=== PATIENT | female | born 1950 | race Caucasian/White ===

== ENCOUNTER 2024-09-30 12:41 | Day surgery (SDC) | payer BC, MEDICARE ==
[~2024-09-30] VITALS: Ht 162.6 cm; Wt 75.4 kg
[~2024-09-30 12:41] MED LIST: ARTIFICIAL TEAR15 M2; Aspir 8181 MG PO; Balanced Salt Epinephrine Irrigation Solution 500 mL IR SCH; COQ-10100 MG; Diazepam 5 MG Tab PO PRN; Diazepam 5 MG Tab PO SCH; ERGO400; EUTHYROX50 MC1 PO; FISH OIL; FISH OIL 1,0001 EA10; FLAX OIL; LOSARTAN POTAS100 M1 PO; LOVA40 PO; Lidocaine HCl/Pf 1% 5 ML VIAL XX SCH; Metrogel 1% 6060 GM TOP; Moxifloxacin HCL 0.5 MG/0.1 ML 0.4MLSYR RIGHTEYE SCH; Ondansetron 4 MG SoluTab MM PRN; PHENYLEPHRINE\\TROPICAMIDE\\TETRACAINE OPHTHALMIC DILATING SOLN RIGHTEYE PRN; Povidone-Iodine 450 DROP/30 ML Solution ONE; Povidone-Iodine 450 DROP/30 ML Solution RIGHTEYE SCH; Tetracaine HCl/Pf 0.5% Opth Soln 4 ml ONE; Vitamin B Comple1 EA; Vitamin B-12100 MCG
[2024-09-30] MEDS ORDERED: Diazepam 5 MG Tab ONE (12:47)
--- NOTE | 2024-09-30 13:05 | NUR ---
09/30/24 1305 Sheldon Pina CALL LIGHT WITHIN REACH. TETRACAINE IN RIGHT EYE AT 1302 AND PLEDGETT IN AT 1304. PT STATES HER ANXIETY LEVEL IS AT 5/10. PT ON CONTINOUS PULSE OXIMETER FOR MONITORING.
--- NOTE | 2024-09-30 14:05 | NUR ---
09/30/24 1405 Joann Stoddard [id number]
[2024-09-30 14:34] VITALS: BP 171/81
--- NOTE | 2024-09-30 14:39 | NUR ---
09/30/24 [id number] BAIRON GUZMAN SPEAKING WITH DR MACIAS. DISCUSSING DISCOMFORT IN HER EYE. PT STATES THAT SHE NORMALLY TAKES IBUPROFEN FOR DISCOMFORT AND DR MACIAS AGREES THAT THIS WOULD BE FINE.
== END 2024-09-30 14:52 | disposition home or self-care (01) ==
LOC: ORSCSDS 12:41
PROVIDERS: Student in an Organized Health Care Education/Training Program
PROC: 08RJ3JZ Replacement of Right Lens with Synthetic Substitute, Percutaneous Approach (ICD-10-PCS; principal; 2024-09-30 14:00)
DX: H25.813 Combined forms of age-related cataract, bilateral (principal); H40.2230 Chronic angle-closure glaucoma, bilateral, stage unspecified; E78.5 Hyperlipidemia, unspecified; I10 Essential (primary) hypertension; E03.9 Hypothyroidism, unspecified; Z79.899 Other long term (current) drug therapy; Z79.82 Long term (current) use of aspirin
CPT/HCPCS: A9270; V2632

== ENCOUNTER 2024-10-07 12:29 | Day surgery (SDC) | payer BC, MEDICARE ==
[~2024-10-07] VITALS: Ht 165.1 cm; Wt 76.4 kg
[~2024-10-07 12:29] MED LIST changes: +Moxifloxacin HCL 0.5 MG/0.1 ML 0.4MLSYR LEFTEYE SCH; -Moxifloxacin HCL 0.5 MG/0.1 ML 0.4MLSYR RIGHTEYE SCH; +NS 500 ML IV ONE; +PHENYLEPHRINE\\TROPICAMIDE\\TETRACAINE OPHTHALMIC DILATING SOLN LEFTEYE PRN; -PHENYLEPHRINE\\TROPICAMIDE\\TETRACAINE OPHTHALMIC DILATING SOLN RIGHTEYE PRN; +Povidone-Iodine 450 DROP/30 ML Solution LEFTEYE SCH; -Povidone-Iodine 450 DROP/30 ML Solution RIGHTEYE SCH
[2024-10-07] MEDS ORDERED: Midazolam HCl 1MG / ML 2ML Vial ONE ×2 (12:39)
[2024-10-07] MEDS ORDERED: NS 500 ML IV ONE (13:00)
[2024-10-07 13:56] VITALS: BP 152/73
--- NOTE | 2024-10-07 14:08 | NUR ---
10/07/24 1408 BAIRON GUZMAN REPORT GIVEN TO YNES BURDEN
== END 2024-10-07 14:20 | disposition home or self-care (01) ==
LOC: ORSCSDS 12:29
PROVIDERS: Student in an Organized Health Care Education/Training Program
PROC: 08RK3JZ Replacement of Left Lens with Synthetic Substitute, Percutaneous Approach (ICD-10-PCS; principal; 2024-10-07 14:00)
DX: H25.812 Combined forms of age-related cataract, left eye (principal); Z96.1 Presence of intraocular lens; H21.81 Floppy iris syndrome; H40.2230 Chronic angle-closure glaucoma, bilateral, stage unspecified; I10 Essential (primary) hypertension; E78.5 Hyperlipidemia, unspecified; E07.9 Disorder of thyroid, unspecified; E66.9 Obesity, unspecified; Z68.28 Body mass index [BMI] 28.0-28.9, adult; Z79.82 Long term (current) use of aspirin; Z79.899 Other long term (current) drug therapy; Z87.891 Personal history of nicotine dependence
CPT/HCPCS: J2250; J7040; V2632